=== PATIENT | male | born 1960 | race Caucasian/White ===

== ENCOUNTER 2017-09-17 09:47 | Emergency (ER) | payer MEDICARE, OTHER ==
[~2017-09-17] VITALS: Ht 170.2 cm; Wt 68.0 kg
[~2017-09-17 09:47] MED LIST: KPHOS250 PO; LANTUS2P SC; NOVOLOGP2 SQ
[2017-09-17] MEDS ORDERED: NOVOLOGP2 SQ (10:10)
[2017-09-17] MEDS ORDERED: LANTUS2P SQ (10:10)
[2017-09-17 10:11] VITALS: BP 154/74; PULSE 85; RESP 16; TEMP 98; O2SAT 97
--- NOTE | 2017-09-17 10:34 | PD ---
HPI Chief Complaint: Fall Time Seen by Provider: 10:03 Travel History International Travel<30 days: No Contact w/Intl Traveler<30days: No Traveled to known affect area: No History of Present Illness HPI Patient is a 57 year old male, states in the early hours of the morning he went to get a drink from the kitchen and lost his balance falling backwards landing on his back and backside. He complains of nausea and back pain. Patient states the pain is fairly intense in his low back. No numbness nor tingling. No saddle anesthesia. No difficulty with urination. Denies neck pain or headache. Denies history of blood thinner use. PFSH Past Medical History Hx Anticoagulant Therapy: No Arthritis: Yes Asthma: No Autoimmune Disease: No Anxiety: No Depression: No Heart Rhythm Problems: No Cancer: No Cardiovascular Problems: Yes High Cholesterol: Yes Chest Pain: Yes Congestive Heart Failure: No COPD: No Coronary Artery Disease: Yes (id 09/1999) Diabetes: Yes Patient Takes Glucophage: No Diminished Hearing: No Endocrine: Yes GERD: Yes (today only) Genitourinary: No Hiatal Hernia: No Immune Disorder: No Kidney Stones: No Musculoskeletal: Yes Neurologic: No Psychiatric: No Reproductive: No Respiratory: Yes Immunizations Current: No Myocardial Infarction: Yes (1999) Renal Failure: No Sleep Apnea: No Thyroid Disease: No Tetanus Vaccination: Unknown Influenza Vaccination: Yes Past Surgical History Abdominal Surgery: No Body Medical Devices: cardiac stents x 3 Cardiac Surgery: Yes Coronary Stent: Yes (X3 STENTS) Ear Surgery: Yes (BILAT PERFORATED EAR DRUMS) Endocrine Surgery: No Eye Surgery: No Genitourinary Surgery: No Gynecologic Surgery: No Oral Surgery: No Thoracic Surgery: No Tonsillectomy: Yes Social History Alcohol Use: Yes ( BEER DAILY) Tobacco Use: No (QUIT 2014) Substance Use: No Allergies-Medications (Allergen,Severity, Reaction): Coded Allergies: No Known Allergies (Verified , 07/18/15) Reported Meds & Prescriptions Reported Meds & Active Scripts Active Zofran Odt (Ondansetron Odt) 4 Mg Tab 4 Mg SL Q6HR PRN Percocet (Oxycodone-Acetaminophen) 10-325 mg Tab 1 Tab PO Q6H PRN Reported Novolog Inj (Insulin Aspart) 1,000 Unit/10 Ml Vial 0 SQ DIRECTED Sliding Scale as directed. Lantus Inj (Insulin Glargine) 1,000 Unit/10 Ml Vial 25 Units SQ HS Review of Systems Except as stated in HPI: all other systems reviewed are Neg Physical Exam Narrative GENERAL: WD/WN appears uncomfortable. SKIN: Warm and dry. HEAD: Atraumatic. Normocephalic. EYES: Pupils equal and round. No scleral icterus. No injection or drainage. ENT: No nasal bleeding or discharge. Mucous membranes pink and moist. NECK: Trachea midline. No JVD. No midline CTLS tenderness. CARDIOVASCULAR: Regular rate and rhythm. RESPIRATORY: No accessory muscle use. Clear to auscultation. Breath sounds equal bilaterally. GASTROINTESTINAL: Abdomen soft, non-tender, nondistended. Hepatic and splenic margins not palpable. MUSCULOSKELETAL: Extremities without clubbing, cyanosis, or edema. No obvious deformities. No midline CTLS tenderness. NEUROLOGICAL: Awake and alert. No obvious cranial nerve deficits. Motor grossly within normal limits. Five out of 5 muscle strength in the arms and legs. Normal speech. PMS intact in all four extremities. PSYCHIATRIC: Appropriate mood and affect; insight and judgment normal. Data Data Last Documented VS Vital Signs Date Time Temp Pulse Resp B/P (MAP) Pulse Ox O2 Delivery O2 Flow Rate FiO2 09/17/17 13:29 16 09/17/17 10:39 96 Room Air 09/17/17 10:20 87 09/17/17 10:11 98.0 154/74 (100) Orders Orders Complete Blood Count With Diff (09/17/17 10:32) Comprehensive Metabolic Panel (09/17/17 10:32) Ct Abd/Pel W Iv Contrast(Rout) (09/17/17 10:32) Iv Access Insert/Monitor (09/17/17 10:32) Ecg Monitoring (09/17/17 10:32) Oximetry (09/17/17 10:32) Sodium Chloride 0.9% Flush (Ns Flush) (09/17/17 10:45) Ct Lumb Spine W Iv Contrast (09/17/17 ) Iohexol 350 Inj (Omnipaque 350 Inj) (09/17/17 11:37) TLSO (09/17/17 ) Morphine Inj (Morphine Inj) (09/17/17 12:45) Ondansetron Odt (Zofran Odt) (09/17/17 12:45) Ed Discharge Order (09/17/17 13:29) Brace Lso-Orthosis (09/17/17 ) Brace Thoracic Ext (09/17/17 ) Labs Laboratory Tests Test 09/17/17 10:40 White Blood Count 10.6 TH/MM3 Red Blood Count 4.49 MIL/MM3 Hemoglobin 14.9 GM/DL Hematocrit 43.7 % Mean Corpuscular Volume 97.2 FL Mean Corpuscular Hemoglobin 33.1 PG Mean Corpuscular Hemoglobin Concent 34.1 % Red Cell Distribution Width 13.1 % Platelet Count 246 TH/MM3 Mean Platelet Volume 8.8 FL Neutrophils (%) (Auto) 85.7 % Lymphocytes (%) (Auto) 8.7 % Monocytes (%) (Auto) 5.1 % Eosinophils (%) (Auto) 0.1 % Basophils (%) (Auto) 0.4 % Neutrophils # (Auto) 9.1 TH/MM3 Lymphocytes # (Auto) 0.9 TH/MM3 Monocytes # (Auto) 0.5 TH/MM3 Eosinophils # (Auto) 0.0 TH/MM3 Basophils # (Auto) 0.0 TH/MM3 CBC Comment DIFF FINAL Differential Comment Blood Urea Nitrogen 7 MG/DL Creatinine 0.61 MG/DL Random Glucose 225 MG/DL Total Protein 7.5 GM/DL Albumin 3.9 GM/DL Calcium Level 8.8 MG/DL Alkaline Phosphatase 52 U/L Aspartate Amino Transf (AST/SGOT) 27 U/L Alanine Aminotransferase (ALT/SGPT) 27 U/L Total Bilirubin 0.4 MG/DL Sodium Level 138 MEQ/L Potassium Level 4.6 MEQ/L Chloride Level 101 MEQ/L Carbon Dioxide Level 27.7 MEQ/L Anion Gap 9 MEQ/L Estimat Glomerular Filtration Rate 136 ML/MIN [facility] Medical Decision Making Medical Screen Exam Complete: Yes Emergency Medical Condition: Yes Differential Diagnosis Back injury, back fracture, abdominal injury, nausea. Narrative Course D/W chyna ok to go home if symptoms are controlled. Morphine and zofran given. Internally abdomen negative. Patient able to concentrate on neck examination and i do not appreciate this as a distracting injury. Cleared by nexus criteria and togolese ct head rules. His pain now better under control, demonstrated ambulation with TLSO. Adamantly denies LOC. He is stable for DC. discussed follow up with pcp and return to ED criteria. Diagnosis Primary Impression: L1 vertebral fracture Referrals: Jack Grady MD Med/Other Pt SpecificInfo: Prescription(s) given Scripts Ondansetron Odt (Zofran Odt) 4 Mg Tab 4 MG SL Q6HR Y for Nausea/Vomiting, #20 TAB 0 Refills Prov: Ag Arambula MD 09/17/17 Oxycodone-Acetaminophen (Percocet) 10-325 mg Tab 1 TAB PO Q6H Y for PAIN, #12 TAB 0 Refills Prov: Ag Arambula MD 09/17/17 Disposition: 01 DISCHARGE HOME Condition: Stable Ag Arambula MD Sep 17, 2017 10:34
[2017-09-17 10:39] VITALS: RESP 16; O2SAT 96
[2017-09-17] MEDS ORDERED: SODIUM CHLORIDE 0.9% FLUSH 10 ML FLUSH IV FLUSH PRN (10:45)
[2017-09-17 11:07] LABS: AUTOMATED NEUTROPHIL # 9.1 TH/MM3 (1.8-7.7); BASOPHIL % 0.4 % (0.0-2.0); EOSINOPHIL % 0.1 % (0.0-4.0); HEMATOCRIT 43.7 % (39.0-51.0); HEMOGLOBIN 14.9 GM/DL (13.0-17.0); LYMPH % 8.7 % (9.0-44.0); LYMPHOCYTE # 0.9 TH/MM3 (1.0-4.8); MEAN CELL VOLUME 97.2 FL (80.0-100.0); MEAN CORPUSCULAR HEMOGLOBIN 33.1 PG (27.0-34.0); MEAN CORPUSCULAR HGB CONC 34.1 % (32.0-36.0); MEAN PLATELET VOLUME 8.8 FL (7.0-11.0); MONO % 5.1 % (0.0-8.0); MONOCYTE # 0.5 TH/MM3 (0-0.9); NEUT % 85.7 % (16.0-70.0); PLATELET COUNT 246 TH/MM3 (150-450); RED BLOOD COUNT 4.49 MIL/MM3 (4.50-5.90); RED CELL DISTRIBUTION WIDTH 13.1 % (11.6-17.2); WHITE BLOOD COUNT 10.6 TH/MM3 (4.0-11.0)
[2017-09-17 11:32] LABS: ALKALINE PHOSPHATASE 52 U/L (45-117); TOTAL BILIRUBIN ADULT 0.4 MG/DL (0.2-1.0); TOTAL PROTEIN 7.5 GM/DL (6.4-8.2)
[2017-09-17] MEDS ORDERED: IOHEXOL 350 MG/ML 10 ML VIAL (for RAD DIAG) IVCONTRAST ONE (11:37)
[2017-09-17 11:42] LABS: BLOOD UREA NITROGEN 7 MG/DL (7-18); CREATININE 0.61 MG/DL (0.60-1.30); GLOMERULAR FILTRATION RATE 136 ML/MIN (>89); GLUCOSE,RANDOM 225 MG/DL (74-106)
[2017-09-17 11:43] LABS: ALBUMIN 3.9 GM/DL (3.4-5.0); ALT (GPT) 27 U/L (12-78); AST (GOT) 27 U/L (15-37); BICARBONATE 27.7 MEQ/L (21.0-32.0); CALCIUM 8.8 MG/DL (8.5-10.1); CHLORIDE 101 MEQ/L (98-107); SODIUM (NA) 138 MEQ/L (136-145)
--- NOTE | 2017-09-17 12:04 | RADRPT ---
EXAM DATE: 09/17/2017 11:45 AM EDT AGE/SEX: 57 years / Male INDICATIONS: Abdominal and back pain with vomiting. CLINICAL DATA: This is the patient's initial encounter. Patient reports that signs and symptoms have been present for 1 day and indicates a pain score of 10/10. MEDICAL/SURGICAL HISTORY: Cardiovascular disease. Diabetes. None. RADIATION DOSE: 6.64 CTDI (mGy) ; Reconstructed from previous dataset, no dose COMPARISON: No prior exams available for comparison. TECHNIQUE: Contiguous axial images were acquired with a multirow detector CT scanner after intraveno us administration of 95 ml Omnipaque 350 (iohexol) nonionic water-soluble contrast as a single exam dose. Multiplanar reconstructions in the sagittal and coronal plane were also performed. Using autom ated exposure control and adjustment of the mA and/or kV according to patient size, radiation dose wa s kept as low as reasonably achievable to obtain optimal diagnostic quality images. DICOM format gary [employer] data is available electronically for review and comparison. FINDINGS: Vertebrae: There is fracturing of the superior aspect of the L1 vertebral body. This appears acute. There is some concavity to the anterior superior aspect of the L1 vertebral body. Disruption of the c ortex is seen anteriorly. The posterior L1 vertebral body margin appears intact. There is a nonspecif ic 0.9 cm sclerotic area in the posterior medial right ilium. Alignment: Normal. No subluxation. Post Contrast: No abnormal areas of enhancement are seen in the cord, dural or paraspinal regions. T12-L1: The thecal sac has a normal diameter. No evidence of disc bulge or protrusion. The neural foramina are patent bilaterally. L1-L2: The thecal sac has a normal diameter. No evidence of disc bulge or protrusion. The neural f oramina are patent bilaterally. L2-L3: The thecal sac has a normal diameter. No evidence of disc bulge or protrusion. The neural f oramina are patent bilaterally. L3-L4: The thecal sac has a normal diameter. No evidence of disc bulge or protrusion. The neural f oramina are patent bilaterally. There is mild facet hypertrophy. L4-L5: The thecal sac has a normal diameter. No evidence of disc bulge or protrusion. The neural f oramina are patent bilaterally. There is mild facet hypertrophy. L5-S1: The thecal sac has a normal diameter. No evidence of disc bulge or protrusion. The neural f oramina are patent bilaterally. CONCLUSION: Acute fracture of the anterior superior aspect of the L1 vertebral body with some concave deformity a nd collapse of the anterior aspect of the superior endplate. Electronically signed by: Parrish Pope MD 09/17/2017 12:03 PM EDT
--- NOTE | 2017-09-17 12:08 | RADRPT ---
EXAM DATE: 09/17/2017 11:33 AM EDT AGE/SEX: 57 years / Male INDICATIONS: Abdominal and back pain with vomiting. CLINICAL DATA: This is the patient's initial encounter. Patient reports that signs and symptoms have been present for 1 day and indicates a pain score of 10/10. MEDICAL/SURGICAL HISTORY: Cardiovascular disease. Diabetes. None. ORAL CONTRAST: No oral contrast ingested. RADIATION DOSE: 6.64 CTDI (mGy) COMPARISON: No prior exams available for comparison. TECHNIQUE: Multiple contiguous axial images were obtained through the abdomen and pelvis following b olus infusion of 95 ml Omnipaque 350 (iohexol) nonionic water-soluble contrast as a single exam dos e. No oral contrast ingested. Using automated exposure control and adjustment of the mA and/or kV ac cording to patient size, radiation dose was kept as low as reasonably achievable to obtain optimal di agnostic quality images. DICOM format image data is available electronically for review and comparis on. FINDINGS: Lower Lungs: The visualized lower lungs are clear. Liver: There is mild decreased attenuation to the liver without focal hepatic lesions. There is no di lation of the biliary tree. Spleen: Homogeneous density without enlargement. Pancreas: Unremarkable without mass or calcification. Kidneys: Normal in size and shape. No evidence of hydronephrosis. Small right renal cysts are seen. Adrenal Glands: Unremarkable. Aorta: Atherosclerotic calcifications are seen throughout. Bowel/Mesentery: The bowel loops are grossly unremarkable. The cecum and sigmoid colon have a normal configuration. Abdominal Wall: Intact. Retroperitoneum: No evidence of adenopathy in the retrocrural, para-aortic, or deep pelvic regions. Bladder: Contours are smooth. Reproductive Organs: No abnormal masses or calcifications seen. Inguinal: The inguinal region is unremarkable without evidence of adenopathy. Bony Structures: There is fracturing of the superior aspect of the L1 vertebral body.. CONCLUSION: 1. Fracturing of the superior aspect of the L1 vertebral body. 2. Hepatic steatosis. Electronically signed by: Parrish Pope MD 09/17/2017 12:07 PM EDT
[2017-09-17] MEDS ORDERED: ONDANSETRON ODT 4 MG TAB PO ONE (12:45)
[2017-09-17] MEDS ORDERED: MORPHINE SULFATE 4 MG/ML INJ IV PUSH ONE (12:45)
[2017-09-17 13:29] VITALS: RESP 16
[2017-09-17] MEDS ORDERED: PERC10TA27 PO (13:29)
[2017-09-17] MEDS ORDERED: ZOFR4TAB3 SL (13:29)
== END 2017-09-17 13:54 | disposition home or self-care (01) ==
LOC: NEPD 09:47
DX: S32.019A Unspecified fracture of first lumbar vertebra, initial encounter for closed fracture (principal); E11.9 Type 2 diabetes mellitus without complications; W01.0XXA Fall on same level from slipping, tripping and stumbling without subsequent striking against object, initial encounter; Y93.89 Activity, other specified; Y92.000 Kitchen of unspecified non-institutional (private) residence as the place of occurrence of the external cause; Z79.4 Long term (current) use of insulin
CPT/HCPCS: 72132; 74177; 80053; 85025; 96374; 99284; J2270; L0200; L0484; Q9967

== ENCOUNTER 2017-09-19 19:04 | Emergency (ER) | payer OTHER ==
[~2017-09-19] VITALS: Ht 172.7 cm; Wt 63.5 kg
[~2017-09-19 19:04] MED LIST changes: -KPHOS250 PO; -LANTUS2P SC; +LANTUS2P SQ; +PERC10TA27 PO; +ZOFR4TAB3 SL
[2017-09-19 19:06] VITALS: BP 106/61; PULSE 109; RESP 18; TEMP 97.8; O2SAT 97
--- NOTE | 2017-09-19 19:38 | PD ---
HPI Chief Complaint: Diabetic Time Seen by Provider: 19:23 Travel History International Travel<30 days: No Contact w/Intl Traveler<30days: No Traveled to known affect area: No History of Present Illness HPI 57yo M with PMH of insulin dependent DM, alcohol abuse presents to the ED with c /o nausea and vomiting for 2 days. Pt had diabetic ketoacidosis before and was concern. Denies any fever, chest pain, sob, abdominal pain, focal weakness or numbness. Pt was seen at [facility] on 09/17/17 after a fall and found to have fracture of L1 and is now in a TLSO brace. Pt last had alcohol today. PFSH Past Medical History Hx Anticoagulant Therapy: No Arthritis: Yes Asthma: No Autoimmune Disease: No Anxiety: No Depression: No Heart Rhythm Problems: No Cancer: No Cardiovascular Problems: Yes (AL and stents) High Cholesterol: Yes Chest Pain: Yes Congestive Heart Failure: No COPD: No Coronary Artery Disease: Yes (mi 09/1999) Diabetes: Yes Diminished Hearing: No Endocrine: Yes GERD: Yes (today only) Genitourinary: No Hiatal Hernia: No Immune Disorder: No Kidney Stones: No Musculoskeletal: Yes Neurologic: No Psychiatric: No Reproductive: No Respiratory: Yes Immunizations Current: No Myocardial Infarction: Yes (1999) Renal Failure: No Sleep Apnea: No Thyroid Disease: No Past Surgical History Abdominal Surgery: No Body Medical Devices: cardiac stents x 3 Cardiac Surgery: Yes Coronary Stent: Yes (X3 STENTS) Ear Surgery: Yes (BILAT PERFORATED EAR DRUMS) Endocrine Surgery: No Eye Surgery: No Genitourinary Surgery: No Gynecologic Surgery: No Oral Surgery: No Thoracic Surgery: No Tonsillectomy: Yes Social History Alcohol Use: Yes ( BEER DAILY) Tobacco Use: No (QUIT 2014) Substance Use: No Allergies-Medications (Allergen,Severity, Reaction): Coded Allergies: No Known Allergies (Verified , 07/18/15) Reported Meds & Prescriptions Reported Meds & Active Scripts Active Zantac (Ranitidine HCl) 150 Mg Tab 150 Mg PO BID Zofran Odt (Ondansetron Odt) 4 Mg Tab 4 Mg SL Q6HR PRN Percocet (Oxycodone-Acetaminophen) 10-325 mg Tab 1 Tab PO Q6H PRN Reported Novolog Inj (Insulin Aspart) 1,000 Unit/10 Ml Vial 0 SQ DIRECTED Sliding Scale as directed. Lantus Inj (Insulin Glargine) 1,000 Unit/10 Ml Vial 25 Units SQ HS Review of Systems Except as stated in HPI: all other systems reviewed are Neg Physical Exam Narrative GENERAL: 57yo M not in distress. SKIN: Focused skin assessment warm/dry. HEAD: Atraumatic. Normocephalic. EYES: Pupils equal and round. No scleral icterus. No injection or drainage. ENT: No nasal bleeding or discharge. Mucous membranes pink and moist. NECK: Trachea midline. No JVD. CARDIOVASCULAR: Regular rate and rhythm. No murmur appreciated. RESPIRATORY: No accessory muscle use. Clear to auscultation. Breath sounds equal bilaterally. GASTROINTESTINAL: Abdomen soft, non-tender, nondistended. No rebound tenderness or guarding. MUSCULOSKELETAL: No obvious deformities. No clubbing. No cyanosis. No edema. NEUROLOGICAL: Awake and alert. No obvious cranial nerve deficits. Motor grossly within normal limits. Normal speech. PSYCHIATRIC: Appropriate mood and affect; insight and judgment normal. Data Data Last Documented VS Vital Signs Date Time Temp Pulse Resp B/P (MAP) Pulse Ox O2 Delivery O2 Flow Rate FiO2 09/19/17 21:18 106 16 105/60 (75) 100 Room Air 09/19/17 19:06 97.8 Orders Orders Complete Blood Count With Diff (09/19/17 19:12) Blood Glucose (09/19/17 19:12) Comprehensive Metabolic Panel (09/19/17 19:12) Iv Access Insert/Monitor (09/19/17 19:12) Blood Gas Venous (Vbg) (09/19/17 19:31) Sodium Chlor 0.9% 1000 Ml Inj (Ns 1000 M (09/19/17 19:45) Ondansetron Odt (Zofran Odt) (09/19/17 19:45) Beta Hydroxybutyrate (Acetone) (09/19/17 19:12) Lipase (09/19/17 19:12) Sodium Chlor 0.9% 1000 Ml Inj (Ns 1000 M (09/19/17 21:45) Ed Discharge Order (09/19/17 22:19) Ranitidine Liq (Zantac Liq) (09/19/17 22:30) Famotidine (Pepcid) (09/19/17 22:30) Labs Laboratory Tests Test 09/19/17 19:40 09/19/17 19:45 White Blood Count 9.1 TH/MM3 Red Blood Count 4.74 MIL/MM3 Hemoglobin 15.9 GM/DL Hematocrit 46.3 % Mean Corpuscular Volume 97.6 FL Mean Corpuscular Hemoglobin 33.5 PG Mean Corpuscular Hemoglobin Concent 34.3 % Red Cell Distribution Width 12.1 % Platelet Count 224 TH/MM3 Mean Platelet Volume 8.5 FL Neutrophils (%) (Auto) 84.9 % Lymphocytes (%) (Auto) 8.9 % Monocytes (%) (Auto) 5.7 % Eosinophils (%) (Auto) 0.1 % Basophils (%) (Auto) 0.4 % Neutrophils # (Auto) 7.8 TH/MM3 Lymphocytes # (Auto) 0.8 TH/MM3 Monocytes # (Auto) 0.5 TH/MM3 Eosinophils # (Auto) 0.0 TH/MM3 Basophils # (Auto) 0.0 TH/MM3 CBC Comment DIFF FINAL Differential Comment Blood Urea Nitrogen 11 MG/DL Creatinine 0.70 MG/DL Random Glucose 214 MG/DL Total Protein 8.2 GM/DL Albumin 3.8 GM/DL Calcium Level 9.8 MG/DL Alkaline Phosphatase 63 U/L Aspartate Amino Transf (AST/SGOT) 20 U/L Alanine Aminotransferase (ALT/SGPT) 23 U/L Total Bilirubin 0.9 MG/DL Sodium Level 130 MEQ/L Potassium Level 4.5 MEQ/L Chloride Level 88 MEQ/L Carbon Dioxide Level 25.1 MEQ/L Anion Gap 17 MEQ/L Estimat Glomerular Filtration Rate 116 ML/MIN Lipase 45 U/L B-Hydroxybutyrate 8.03 MMOL/L Blood Gas Puncture Site IV Blood Gas Patient Temperature 98.6 Venous Blood pH 7.37 Venous Blood Partial Pressure CO2 47 mmHg Venous Blood Partial Pressure O2 18 mmHg Venous Blood HCO3 26 mmol/L Venous Blood Oxygen Saturation 23 % Venous Blood Oxygen Content 5.1 Vol % Venous Blood Base Excess 1.4 mmol/L Blood Gas Inspired Oxygen 21 % [facility] Medical Decision Making Medical Screen Exam Complete: Yes Emergency Medical Condition: Yes Differential Diagnosis DKA vs. dehydration vs. electrolyte abnormality Narrative Course 57yo well appearing male here with complaint of nausea and vomiting for 2 days. Pt wants to make sure he is not in DKA because he has had this before. Labs reviewed, no leukocytosis. H/H normal. Mild hyponatremia at 130. Mild hypochloremia at 88. Glucose only elevated at 214. CO normal at 25.1. pH is normal at 7.37. Pt given zofran and NS IVF x2. Pt reevaluated at bedside and feeling better. Tolerating PO. No abdominal pain. Upon discharge, pt said he wants something for reflux so given pepcid. Pt already has prescriptions for zofran. Return precautions given. Diagnosis Primary Impression: Nausea & vomiting Qualified Codes: R11.2 - Nausea with vomiting, unspecified Patient Instructions: General Instructions Departure Forms: Tests/Procedures Additional Instructions: Please follow up with your primary care physician in 2-3 days. Return to the ED if symptoms worsen. Med/Other Pt SpecificInfo: Prescription(s) given Scripts Ranitidine (Zantac) 150 Mg Tab 150 MG PO BID for Reduce Stomach Acid, #15 TAB 0 Refills Prov: June Lowe DO 09/19/17 Disposition: 01 DISCHARGE HOME Condition: Stable June Lowe DO Sep 19, 2017 19:38
[2017-09-19] MEDS ORDERED: SODIUM CHLOR 0.9% 1000 ML INJ 1,000 ML IV ONE ×2 (19:45→21:45)
[2017-09-19] MEDS ORDERED: ONDANSETRON ODT 4 MG TAB PO ONE (19:45)
[2017-09-19 19:54] LABS: AUTOMATED NEUTROPHIL # 7.8 TH/MM3 (1.8-7.7); BASOPHIL % 0.4 % (0.0-2.0); EOSINOPHIL % 0.1 % (0.0-4.0); HEMATOCRIT 46.3 % (39.0-51.0); HEMOGLOBIN 15.9 GM/DL (13.0-17.0); LYMPH % 8.9 % (9.0-44.0); LYMPHOCYTE # 0.8 TH/MM3 (1.0-4.8); MEAN CELL VOLUME 97.6 FL (80.0-100.0); MEAN CORPUSCULAR HEMOGLOBIN 33.5 PG (27.0-34.0); MEAN CORPUSCULAR HGB CONC 34.3 % (32.0-36.0); MEAN PLATELET VOLUME 8.5 FL (7.0-11.0); MONO % 5.7 % (0.0-8.0); MONOCYTE # 0.5 TH/MM3 (0-0.9); NEUT % 84.9 % (16.0-70.0); PLATELET COUNT 224 TH/MM3 (150-450); RED BLOOD COUNT 4.74 MIL/MM3 (4.50-5.90); RED CELL DISTRIBUTION WIDTH 12.1 % (11.6-17.2); WHITE BLOOD COUNT 9.1 TH/MM3 (4.0-11.0)
[2017-09-19 20:01] LABS: CHLORIDE 88 MEQ/L (98-107); SODIUM (NA) 130 MEQ/L (136-145)
[2017-09-19 20:04] LABS: CALCIUM 9.8 MG/DL (8.5-10.1)
[2017-09-19 20:05] LABS: ALBUMIN 3.8 GM/DL (3.4-5.0); BICARBONATE 25.1 MEQ/L (21.0-32.0); BLOOD UREA NITROGEN 11 MG/DL (7-18); GLUCOSE,RANDOM 214 MG/DL (74-106)
[2017-09-19 20:08] LABS: ALT (GPT) 23 U/L (12-78); AST (GOT) 20 U/L (15-37); GLOMERULAR FILTRATION RATE 116 ML/MIN (>89)
[2017-09-19 20:09] LABS: TOTAL BILIRUBIN ADULT 0.9 MG/DL (0.2-1.0); TOTAL PROTEIN 8.2 GM/DL (6.4-8.2)
[2017-09-19 20:10] LABS: ALKALINE PHOSPHATASE 63 U/L (45-117)
[2017-09-19 21:18] VITALS: BP 105/60; PULSE 106; RESP 16; O2SAT 100
[2017-09-19] MEDS ORDERED: ZOFR4TAB3 SL (22:18)
[2017-09-19] MEDS ORDERED: ZANT150T2 PO (22:23)
[2017-09-19] MEDS ORDERED: FAMOTIDINE 20 MG TAB PO ONE (22:30)
[2017-09-19] MEDS ORDERED: RANITIDINE HCL SYRUP 150 MG/10 ML UDC PO ONE (22:30)
[2017-09-19 22:46] VITALS: BP 137/78
== END 2017-09-19 22:48 | disposition home or self-care (01) ==
LOC: PHED 19:04
DX: R11.2 Nausea with vomiting, unspecified (principal); E11.9 Type 2 diabetes mellitus without complications; E78.00 Pure hypercholesterolemia, unspecified; I25.2 Old myocardial infarction; I25.10 Atherosclerotic heart disease of native coronary artery without angina pectoris; Z79.4 Long term (current) use of insulin; Z95.5 Presence of coronary angioplasty implant and graft
CPT/HCPCS: 80053; 82010; 82805; 83690; 85025; 96360; 96361; 99284; J7030

== ENCOUNTER 2017-09-21 14:26 | Inpatient (IN) | payer OTHER, MEDICARE ==
[2017-09-21] VITALS (18 sets, daily range): BP systolic 102–140; BP diastolic 55–70; PULSE 100–114; RESP 16–24; TEMP 97.8–98; O2SAT 98–100
[~2017-09-21] VITALS: Ht 170.2 cm; Wt 60.9 kg
[~2017-09-21 14:26] MED LIST changes: +ZANT150T2 PO
[2017-09-21 15:47] LABS: AUTOMATED NEUTROPHIL # 14.4 TH/MM3 (1.8-7.7); BASOPHIL # 0.2 TH/MM3 (0-0.2); BASOPHIL % 1.1 % (0.0-2.0); EOSINOPHIL % 0.1 % (0.0-4.0); HEMATOCRIT 43.1 % (39.0-51.0); HEMOGLOBIN 14.6 GM/DL (13.0-17.0); LYMPH % 4.3 % (9.0-44.0); LYMPHOCYTE # 0.7 TH/MM3 (1.0-4.8); MEAN CELL VOLUME 99.5 FL (80.0-100.0); MEAN CORPUSCULAR HEMOGLOBIN 33.8 PG (27.0-34.0); MEAN CORPUSCULAR HGB CONC 33.9 % (32.0-36.0); MEAN PLATELET VOLUME 9.1 FL (7.0-11.0); MONO % 7.5 % (0.0-8.0); MONOCYTE # 1.2 TH/MM3 (0-0.9); PLATELET COUNT 255 TH/MM3 (150-450); RED BLOOD COUNT 4.33 MIL/MM3 (4.50-5.90); RED CELL DISTRIBUTION WIDTH 12.9 % (11.6-17.2); WHITE BLOOD COUNT 16.5 TH/MM3 (4.0-11.0)
[2017-09-21 16:07] LABS: ALBUMIN 3.8 GM/DL (3.4-5.0); ALKALINE PHOSPHATASE 68 U/L (45-117); ALT (GPT) 21 U/L (12-78); AST (GOT) 13 U/L (15-37); BICARBONATE 3.4 MEQ/L (21.0-32.0); BLOOD UREA NITROGEN 21 MG/DL (7-18); CALCIUM 9.4 MG/DL (8.5-10.1); CHLORIDE 94 MEQ/L (98-107); GLOMERULAR FILTRATION RATE 52 ML/MIN (>89); GLUCOSE,RANDOM 405 MG/DL (74-106); SODIUM (NA) 129 MEQ/L (136-145); TOTAL BILIRUBIN ADULT 0.5 MG/DL (0.2-1.0); TOTAL PROTEIN 7.9 GM/DL (6.4-8.2)
[2017-09-21] MEDS: DEXT 5%-NACL 0.9% 1000 ML INJ 1,000 ML IV SCH ×3 (16:13→22:38)
[2017-09-21] MEDS ORDERED: POTASSIUM CHLOR 20 MEQ PREMIX 100 ML IV PRN ×12 (16:15→16:30)
[2017-09-21] MEDS ORDERED: SODIUM PHOSPHATE INJ 15 MMOL in SODIUM CHLORIDE 0.9% INJ 100 ML IV PRN ×2 (16:15→16:30)
[2017-09-21] MEDS ORDERED: SODIUM CHLOR 0.9% 1000 ML INJ 1,000 ML IV ONE (16:15)
[2017-09-21] MEDS ORDERED: INSULIN HUMAN REGULAR 1,000 UNITS/10 ML VIAL IV PUSH ONE ×3 (16:15→17:15)
[2017-09-21] MEDS ORDERED: SODIUM BICARBONATE 8.4% SOLN 50 MEQ/50 ML VIAL IV PUSH PRN ×4 (16:15→16:30)
[2017-09-21] MEDS ORDERED: INSULIN REGULAR (IV INFUSION) 100 UNITS in SODIUM CHLORIDE 0.9% INJ 99 ML IV PRN ×2 (16:15→16:30)
[2017-09-21] MEDS ORDERED: POTASSIUM CHLOR 40 MEQ PREMIX 100 ML IV PRN ×4 (16:15→16:30)
[2017-09-21] MEDS ORDERED: SODIUM CHLOR 0.9% 1000 ML INJ 1,000 ML IV SCH (16:26)
[2017-09-21] MEDS ORDERED: DEXT 5%-NACL 0.9% 1000 ML INJ 1,000 ML IV SCH (16:26)
[2017-09-21] MEDS ORDERED: BISACODYL 10 MG SUPP RECTAL PRN (16:30)
[2017-09-21] MEDS ORDERED: NURSING INFORMATION XX SCH (16:30)
[2017-09-21] MEDS ORDERED: MAGNESIUM HYDROXIDE SUSP 30 ML CUP PO PRN (16:30)
[2017-09-21] MEDS ORDERED: SENNOSIDES 8.6 MG TAB PO PRN (16:30)
[2017-09-21] MEDS ORDERED: ACETAMINOPHEN 325 MG TAB PO PRN (16:30)
[2017-09-21] MEDS ORDERED: SODIUM CHLORIDE 0.9% FLUSH 10 ML FLUSH IV FLUSH PRN (16:30)
[2017-09-21] MEDS ORDERED: LACTULOSE SYRUP 20 GM/30 ML CUP PO PRN (16:30)
[2017-09-21] MEDS ORDERED: RESP: ALBUTEROL 2.5 MG/IPRATROPIUM 0.5 MG NEB (PRN) INH (16:30)
[2017-09-21] MEDS ORDERED: CHLORHEXIDINE GLUCONATE 2 % 1 PACK (2 CLOTHS) TOP PRN (16:30)
[2017-09-21] MEDS ORDERED: ONDANSETRON HCL 4 MG/2 ML VIAL IV PUSH PRN (16:30)
[2017-09-21] MEDS: SODIUM CHLOR 0.9% 1000 ML INJ 1,000 ML IV SCH ×5 (17:01→23:31)
[2017-09-21 17:18] LABS: MAGNESIUM 2.3 MG/DL (1.5-2.5)
[2017-09-21 17:22] LABS: PHOSPHORUS 6.3 MG/DL (2.5-4.9)
[2017-09-21 17:26] LABS: TROPONIN I LESS THAN 0.02 NG/ML (0.02-0.05)
--- NOTE | 2017-09-21 17:47 | PD ---
HPI Chief Complaint: GI Complaint Time Seen by Provider: 15:15 Travel History International Travel<30 days: No Contact w/Intl Traveler<30days: No Traveled to known affect area: No History of Present Illness HPI This is a 57-year-old male who has a history of resents to the emergency department with nausea and vomiting that have been going on for 1 week, constant , moderate severity with some diffuse mild abdominal pain. He broke his back one week ago and ever since then has had decreased appetite and oral intake. He has a history of diabetic ketoacidosis in the past. PFSH Past Medical History Hx Anticoagulant Therapy: No Arthritis: Yes Asthma: No Autoimmune Disease: No Anxiety: No Depression: No Heart Rhythm Problems: No Cancer: No Cardiovascular Problems: Yes (HI and stents) High Cholesterol: Yes Chest Pain: Yes Congestive Heart Failure: No COPD: No Coronary Artery Disease: Yes (mi 09/1999) Diabetes: Yes Patient Takes Glucophage: Yes Diminished Hearing: No Endocrine: Yes GERD: Yes (today only) Genitourinary: No Hiatal Hernia: No Immune Disorder: No Implanted Vascular Access Dvce: Yes Kidney Stones: No Medical other: Yes (FX BACK 09/19/17) Musculoskeletal: Yes Neurologic: No Psychiatric: No Reproductive: No Respiratory: Yes Immunizations Current: No Myocardial Infarction: Yes (1999) Renal Failure: No Sleep Apnea: No Thyroid Disease: No Tetanus Vaccination: Unknown Past Surgical History Abdominal Surgery: No Body Medical Devices: cardiac stents x 3 Cardiac Surgery: Yes Coronary Stent: Yes (X3 STENTS) Ear Surgery: Yes (BILAT PERFORATED EAR DRUMS) Endocrine Surgery: No Eye Surgery: No Genitourinary Surgery: No Gynecologic Surgery: No Oral Surgery: No Thoracic Surgery: No Tonsillectomy: Yes Other Surgery: Yes Social History Alcohol Use: Yes ( BEER DAILY) Tobacco Use: No (QUIT 2014) Substance Use: No Allergies-Medications (Allergen,Severity, Reaction): Coded Allergies: No Known Allergies (Verified Adverse Reaction, Unknown, 09/21/17) Reported Meds & Prescriptions Reported Meds & Active Scripts Active Zantac (Ranitidine HCl) 150 Mg Tab 150 Mg PO BID Zofran Odt (Ondansetron Odt) 4 Mg Tab 4 Mg SL Q6HR PRN Percocet (Oxycodone-Acetaminophen) 10-325 mg Tab 1 Tab PO Q6H PRN Reported Novolog Inj (Insulin Aspart) 1,000 Unit/10 Ml Vial 0 SQ DIRECTED Sliding Scale as directed. Lantus Inj (Insulin Glargine) 1,000 Unit/10 Ml Vial 25 Units SQ HS Review of Systems Except as stated in HPI: all other systems reviewed are Neg Physical Exam Narrative GENERAL:Well appearing, no acute distress SKIN: Focused skin assessment warm and dry. HEAD: Atraumatic. Normocephalic. EYES: Pupils equal and round. No injection or drainage. ENT: Dry mucous membranes. NECK: Trachea midline. CARDIOVASCULAR: Tachycardia, no murmur appreciated. RESPIRATORY: Kussmaul respirations, tachypnea GASTROINTESTINAL: Abdomen soft, non-tender, nondistended. MUSCULOSKELETAL: No obvious deformities. NEUROLOGICAL: Awake and alert. No obvious cranial nerve deficits. Moving all extremities. PSYCHIATRIC: Appropriate mood and affect; insight and judgment normal. Data Data Last Documented VS Vital Signs Date Time Temp Pulse Resp B/P (MAP) Pulse Ox O2 Delivery O2 Flow Rate FiO2 09/21/17 17:40 106 24 117/55 (75) 100 Room Air 09/21/17 17:15 21 09/21/17 14:33 98.0 Orders Orders Complete Blood Count With Diff (09/21/17 15:16) Comprehensive Metabolic Panel (09/21/17 15:16) ^ Insert Iv (09/21/17 15:16) Blood Gas Venous (Vbg) (09/21/17 15:16) Electrocardiogram (09/21/17 16:13) International Account Representative / Telemetry YOVANI.Q8H (09/21/17 16:13) ^ Insert Iv (09/21/17 16:13) Diet Npo (09/21/17 Dinner) Sodium Chlor 0.9% 1000 Ml Inj (Ns 1000 M (09/21/17 16:13) Dext 5%-Nacl 0.9% 1000 Ml Inj (D5w-Ns 10 (09/21/17 16:13) Insulin Regular (Iv Infusion) (Novolin R (09/21/17 16:15) Potassium Chlor 40 Meq Premix (Kcl 40 Me (09/21/17 16:15) Potassium Chlor 40 Meq Premix (Kcl 40 Me (09/21/17 16:15) Potassium Chlor 20 Meq Premix (Kcl 20 Me (09/21/17 16:15) Potassium Chlor 20 Meq Premix (Kcl 20 Me (09/21/17 16:15) Potassium Chlor 20 Meq Premix (Kcl 20 Me (09/21/17 16:15) Potassium Chlor 20 Meq Premix (Kcl 20 Me (09/21/17 16:15) Potassium Chlor 20 Meq Premix (Kcl 20 Me (09/21/17 16:15) Potassium Chlor 20 Meq Premix (Kcl 20 Me (09/21/17 16:15) Sodium Bicarbonate 8.4% Inj (Sodium Bica (09/21/17 16:15) Sodium Bicarbonate 8.4% Inj (Sodium Bica (09/21/17 16:15) Sodium Phosphate Inj (Sodium Phosphate I (09/21/17 16:15) Hemoglobin (Hgb) A1c (09/21/17 16:13) Urinalysis - C+S If Indicated (09/21/17 16:13) Basic Metabolic Panel (Bmp) (09/21/17 21:13) Basic Metabolic Panel (Bmp) (09/22/17 03:13) Basic Metabolic Panel (Bmp) (09/22/17 09:13) Basic Metabolic Panel (Bmp) (09/22/17 15:13) Magnesium (Mg) (09/21/17 21:13) Magnesium (Mg) (09/22/17 03:13) Magnesium (Mg) (09/22/17 09:13) Magnesium (Mg) (09/22/17 15:13) Phosphorus (Po4) (09/21/17 21:13) Phosphorus (Po4) (09/22/17 03:13) Phosphorus (Po4) (09/22/17 09:13) Phosphorus (Po4) (09/22/17 15:13) Beta Hydroxybutyrate (Acetone) (09/22/17 03:13) Beta Hydroxybutyrate (Acetone) (09/22/17 15:13) Sodium Chlor 0.9% 1000 Ml Inj (Ns 1000 M (09/21/17 16:15) Admit To Inpatient (09/21/17 ) International Account Representative / Telemetry YOVANI.Q8H (09/21/17 16:26) ^ Insert Iv (09/21/17 16:26) ^ Teach Patient (09/21/17 16:26) Bedside Glucose YOVANI.Q1H (09/21/17 16:26) Magnesium (Mg) (09/21/17 16:26) Phosphorus (Po4) (09/21/17 16:26) Lipase (09/21/17 16:26) Troponin I (09/21/17 16:26) Sodium Chlor 0.9% 1000 Ml Inj (Ns 1000 M (09/21/17 16:26) Basic Metabolic Panel (Bmp) (09/21/17 21:26) Basic Metabolic Panel (Bmp) (09/22/17 03:26) Basic Metabolic Panel (Bmp) (09/22/17 09:26) Basic Metabolic Panel (Bmp) (09/22/17 15:26) Magnesium (Mg) (09/21/17 21:26) Magnesium (Mg) (09/22/17 03:26) Magnesium (Mg) (09/22/17 09:26) Magnesium (Mg) (09/22/17 15:26) Phosphorus (Po4) (09/21/17 21:26) Phosphorus (Po4) (09/22/17 03:26) Phosphorus (Po4) (09/22/17 09:26) Phosphorus (Po4) (09/22/17 15:26) Beta Hydroxybutyrate (Acetone) (09/22/17 03:26) Beta Hydroxybutyrate (Acetone) (09/22/17 15:26) ^ Initiate Protocol (09/21/17 16:26) Instruction (09/21/17 16:26) Nursing Information ([facility] Nursing Inform (09/21/17 16:30) Chlorhexidine 2% Cloth (Chlorhexidine 2% (09/22/17 04:00) Chlorhexidine 2% Cloth (Chlorhexidine 2% (09/21/17 16:30) Mrsa Pcr Surveillance (09/21/17 16:26) Admit To Inpatient (09/21/17 ) Code Status (09/21/17 16:26) Vital Signs (Adult) YOVANI.Q1H (09/21/17 16:26) Activity Bed Rest (09/21/17 16:26) Elevate Head Of Bed (09/21/17 16:26) Sodium Chloride 0.9% Flush (Ns Flush) (09/21/17 16:30) Sodium Chloride 0.9% Flush (Ns Flush) (09/21/17 21:00) Acetaminophen (Tylenol) (09/21/17 16:30) Famotidine Inj (Pepcid Inj) (09/21/17 21:00) Ondansetron Inj (Zofran Inj) (09/21/17 16:30) Albuterol-Ipratropium Neb (Duoneb Neb) (09/21/17 16:30) Lactic Acid (09/22/17 04:00) Resp Oxygen Paulo C Titrat 1-4 L (09/21/17 ) Resp Pulse Oximetry (09/21/17 16:26) International Account Representative / Telemetry YOVANI.Q8H (09/21/17 16:26) Heparin Inj (Heparin Inj) (09/21/17 18:00) Scd Bilateral/Knee High YOVANI.BID (09/21/17 16:26) Docusate Sodium-Senna (Nidhi-Colace) (09/21/17 21:00) Magnesium Hydroxide Liq (Milk Of Magnesi (09/21/17 16:30) Sennosides (Senokot) (09/21/17 16:30) Bisacodyl Supp (Dulcolax Supp) (09/21/17 16:30) Lactulose Liq (Lactulose Liq) (09/21/17 16:30) Inpatient Certification (09/21/17 ) Admit Order (Ed Use Only) (09/21/17 16:43) Beta Hydroxybutyrate (Acetone) (09/21/17 16:26) Insulin Human Regular Inj (Novolin R Inj (09/21/17 17:15) Labs Laboratory Tests Test 09/21/17 15:30 White Blood Count 16.5 TH/MM3 Red Blood Count 4.33 MIL/MM3 Hemoglobin 14.6 GM/DL Hematocrit 43.1 % Mean Corpuscular Volume 99.5 FL Mean Corpuscular Hemoglobin 33.8 PG Mean Corpuscular Hemoglobin Concent 33.9 % Red Cell Distribution Width 12.9 % Platelet Count 255 TH/MM3 Mean Platelet Volume 9.1 FL Neutrophils (%) (Auto) 87.0 % Lymphocytes (%) (Auto) 4.3 % Monocytes (%) (Auto) 7.5 % Eosinophils (%) (Auto) 0.1 % Basophils (%) (Auto) 1.1 % Neutrophils # (Auto) 14.4 TH/MM3 Lymphocytes # (Auto) 0.7 TH/MM3 Monocytes # (Auto) 1.2 TH/MM3 Eosinophils # (Auto) 0.0 TH/MM3 Basophils # (Auto) 0.2 TH/MM3 CBC Comment DIFF FINAL Differential Comment Blood Gas Puncture Site R.PERIPHERAL Blood Gas Patient Temperature 98.6 Venous Blood pH 6.92 Venous Blood Partial Pressure CO2 20 mmHg Venous Blood Partial Pressure O2 52 mmHg Venous Blood HCO3 4 mmol/L Venous Blood Oxygen Saturation 73 % Venous Blood Oxygen Content 14.6 Vol % Venous Blood Base Excess -26.1 mmol/L Oxygen Delivery Device ROOM AIR Blood Gas Inspired Oxygen 21 % Blood Urea Nitrogen 21 MG/DL Creatinine 1.40 MG/DL Random Glucose 405 MG/DL Total Protein 7.9 GM/DL Albumin 3.8 GM/DL Calcium Level 9.4 MG/DL Alkaline Phosphatase 68 U/L Aspartate Amino Transf (AST/SGOT) 13 U/L Alanine Aminotransferase (ALT/SGPT) 21 U/L Total Bilirubin 0.5 MG/DL Sodium Level 129 MEQ/L Potassium Level 5.5 MEQ/L Chloride Level 94 MEQ/L Carbon Dioxide Level 3.4 MEQ/L Anion Gap 32 MEQ/L Estimat Glomerular Filtration Rate 52 ML/MIN Phosphorus Level 6.3 MG/DL Magnesium Level 2.3 MG/DL Troponin I LESS THAN 0.02 NG/ML Lipase 65 U/L B-Hydroxybutyrate 15.24 MMOL/L MDM Medical Decision Making Medical Screen Exam Complete: Yes Emergency Medical Condition: Yes Interpretation(s) Afebrile, tachycardic, normotensive Leukocytosis 87% neutrophils Hyponatremia Hyperkalemia VBG: Metabolic acidosis with compensatory respiratory alkalosis Differential Diagnosis Diabetic ketoacidosis, dehydration, electrolyte abnormality, pancreatitis Narrative Course This is a 57-year-old male who presents to the emergency department with increasing nausea and vomiting over the past week. He was placed on a monitor and an IV was established. Labs confirm diabetic ketoacidosis. He was given IV hydration and started on an insulin drip and will be admitted to the intensive care unit for further monitoring. Critical Care Narrative Aggregate critical care time was 40 minutes. Time to perform other separately billable procedures was not included in the critical care time. My time did not include minutes spent treating any other patients simultaneously or on activities that did not directly contribute to the patient's treatment. The services I provided to this patient were to treat and/or prevent clinically significant deterioration that could result in: Disability, I provided critical care services requiring my management, as noted below: Chart data review, documentation time, medication orders and management, vital sign assessments/reviewing monitor data, ordering and reviewing lab tests, ordering and interpreting/reviewing x-rays and diagnostic studies, care of the patient and discussion of the patient with the admitting physicians. Physician Communication Physician Communication Discussed with Dr. Hardy Diagnosis Primary Impression: Diabetic ketoacidosis Qualified Codes: E10.11 - Type 1 diabetes mellitus with ketoacidosis with coma Admitting Information Admitting Physician Requests: Admit Petra Prakash MD Sep 21, 2017 17:47
[2017-09-21] MEDS ORDERED: SODIUM BICARBONATE 8.4% INJ 50 MEQ/50 ML SYR IV PUSH ONE (19:00)
[2017-09-21] MEDS ORDERED: CHLORHEXIDINE GLUCONATE 2 % 1 PACK (2 CLOTHS)(extra cloths) TOPICAL PRN (19:00)
--- NOTE | 2017-09-21 19:17 | HHI.HP ---
HPI Service Critical Care Medicine Primary Care Physician Arturo Begum MD Admission Diagnosis dka Diagnosis: Travel History International Travel<30 Days: No Contact w/Intl Traveler <30 Da: No Traveled to Known Affected Are: No History of Present Illness HPI This is a 57-year-old male that presented to the ED with nausea and vomiting that have been going on for 1 week, constant, moderate severity with some diffuse mild abdominal pain. He previously presented on 09/19 when he broke his back one week ago and noted an L1 fracture on 09/19 and and ever since then has had decreased appetite and oral intake. Beta hydroxybutyrate was 8.0, on his previous admission 2 days ago. Laboratory and imaging studies revealed an elevated anion gap. He has a history of diabetic ketoacidosis in the past. Patient also has alcohol use disorder noted to drink 9 beers a day. Critical care medicine was consulted. History PFSH Past Medical History Hx Anticoagulant Therapy: No Arthritis: Yes Asthma: No Autoimmune Disease: No Anxiety: No Depression: No Heart Rhythm Problems: No Cancer: No Cardiovascular Problems: Yes (DE and stents) High Cholesterol: Yes Chest Pain: Yes Congestive Heart Failure: No COPD: No Coronary Artery Disease: Yes (mi 09/1999) Diabetes: Yes Patient Takes Glucophage: Yes Diminished Hearing: No Endocrine: Yes GERD: Yes (today only) Genitourinary: No Hiatal Hernia: No Immune Disorder: No Implanted Vascular Access Dvce: Yes Kidney Stones: No Medical other: Yes (FX BACK 09/19/17) Musculoskeletal: Yes Neurologic: No Psychiatric: No Reproductive: No Respiratory: Yes Immunizations Current: No Myocardial Infarction: Yes (1999) Renal Failure: No Sleep Apnea: No Thyroid Disease: No Tetanus Vaccination: Unknown Past Surgical History Abdominal Surgery: No Body Medical Devices: cardiac stents x 3 Cardiac Surgery: Yes Coronary Stent: Yes (X3 STENTS) Ear Surgery: Yes (BILAT PERFORATED EAR DRUMS) Endocrine Surgery: No Eye Surgery: No Genitourinary Surgery: No Gynecologic Surgery: No Oral Surgery: No Thoracic Surgery: No Tonsillectomy: Yes Other Surgery: Yes Social History Alcohol Use: Yes ( BEER DAILY) Tobacco Use: No (QUIT 2014) Substance Use: No Allergies-Medications Allergies-Medications (Allergen,Severity, Reaction): Coded Allergies: No Known Allergies (Verified Adverse Reaction, Unknown, 09/21/17) Reported Meds & Prescriptions Reported Meds & Active Scripts Active Zantac (Ranitidine HCl) 150 Mg Tab 150 Mg PO BID Zofran Odt (Ondansetron Odt) 4 Mg Tab 4 Mg SL Q6HR PRN Percocet (Oxycodone-Acetaminophen) 10-325 mg Tab 1 Tab PO Q6H PRN Reported Novolog Inj (Insulin Aspart) 1,000 Unit/10 Ml Vial 0 SQ DIRECTED Sliding Scale as directed. Lantus Inj (Insulin Glargine) 1,000 Unit/10 Ml Vial 25 Units SQ HS Physical Exam Vital Signs Vital Signs Date Time Temp Pulse Resp B/P (MAP) Pulse Ox O2 Delivery O2 Flow Rate FiO2 09/21/17 18:02 09/21/17 17:49 97.8 108 24 117/55 (75) 100 Room Air 09/21/17 17:40 106 24 117/55 (75) 100 Room Air 09/21/17 17:15 100 21 09/21/17 16:18 106 118/69 (85) 99 Room Air 09/21/17 14:33 98.0 114 16 123/58 (79) 100 Physical Exam GENERAL: This is a well-developed well-nourished male appearing older than stated age, in no acute distress SKIN: Warm and dry. HEAD: Atraumatic. Normocephalic. EYES: Pupils equal and round. No scleral icterus. No injection or drainage. ENT: No nasal bleeding or discharge. Mucous membranes pink and moist. NECK: Trachea midline. No JVD. CARDIOVASCULAR: Normal rate, regular rhythm. RESPIRATORY: No accessory muscle use. Clear to auscultation. Breath sounds equal bilaterally. GASTROINTESTINAL: Abdomen soft, non-tender, nondistended. No guarding. MUSCULOSKELETAL: Extremities without clubbing, cyanosis, or edema. No obvious deformities. NEUROLOGICAL: GCS 15. awake and alert. RASS 0. No gross focal/sensory deficits. Follows commands in all 4 extremities. Laboratory Laboratory Tests Test 09/21/17 15:30 White Blood Count 16.5 Red Blood Count 4.33 Hemoglobin 14.6 Hematocrit 43.1 Mean Corpuscular Volume 99.5 Mean Corpuscular Hemoglobin 33.8 Mean Corpuscular Hemoglobin Concent 33.9 Red Cell Distribution Width 12.9 Platelet Count 255 Mean Platelet Volume 9.1 Neutrophils (%) (Auto) 87.0 Lymphocytes (%) (Auto) 4.3 Monocytes (%) (Auto) 7.5 Eosinophils (%) (Auto) 0.1 Basophils (%) (Auto) 1.1 Neutrophils # (Auto) 14.4 Lymphocytes # (Auto) 0.7 Monocytes # (Auto) 1.2 Eosinophils # (Auto) 0.0 Basophils # (Auto) 0.2 CBC Comment DIFF FINAL Differential Comment Blood Gas Puncture Site R.PERIPHERAL Blood Gas Patient Temperature 98.6 Venous Blood pH 6.92 Venous Blood Partial Pressure CO2 20 Venous Blood Partial Pressure O2 52 Venous Blood HCO3 4 Venous Blood Oxygen Saturation 73 Venous Blood Oxygen Content 14.6 Venous Blood Base Excess -26.1 Oxygen Delivery Device ROOM AIR Blood Gas Inspired Oxygen 21 Blood Urea Nitrogen 21 Creatinine 1.40 Random Glucose 405 Total Protein 7.9 Albumin 3.8 Calcium Level 9.4 Alkaline Phosphatase 68 Aspartate Amino Transf (AST/SGOT) 13 Alanine Aminotransferase (ALT/SGPT) 21 Total Bilirubin 0.5 Sodium Level 129 Potassium Level 5.5 Chloride Level 94 Carbon Dioxide Level 3.4 Anion Gap 32 Estimat Glomerular Filtration Rate 52 Phosphorus Level 6.3 Magnesium Level 2.3 Troponin I LESS THAN 0.02 Lipase 65 B-Hydroxybutyrate 15.24 Result Diagram: 09/21/17 1530 09/21/17 1530 Septic Shock Reassessment Septic shock perfusion: reassessment completed Caprini VTE Risk Assessment Caprini VTE Risk Assessment: Mod/High Risk (score >= 2) Caprini Risk Assessment Model Point Value = 1 Point Value = 2 Point Value = 3 Point Value = 5 Age 41-60 Minor surgery BMI > 25 kg/m2 Swollen legs Varicose veins or History of unexplained or recurrent spontaneous Oral contraceptives or hormone replacement Sepsis (< 1 month) Serious lung disease, including pneumonia (< 1 month) Abnormal pulmonary function Acute myocardial infarction Congestive heart failure (< 1 month) History of inflammatory bowel disease Medical patient at bed rest Age 61-74 Arthroscopic surgery Major open surgery (> 45 min) Laparoscopic surgery (> 45 min) Malignancy Confined to bed (> 72 hours) Immobilizing plaster cast Central venous access Age >= 75 History of VTE Family history of VTE Factor V Leiden Prothrombin [id number] Lupus anticoagulant Anticardiolipin antibodies Elevated serum homocysteine Heparin-induced thrombocytopenia Other congenital or acquired thrombophilia Stroke (< 1 month) Elective arthroplasty Hip, pelvis, or leg fracture Acute spinal cord injury (< 1 month) Prophylaxis Regimen Total Risk Factor Score Risk Level Prophylaxis Regimen 0-1 Low Early ambulation 2 Moderate Order ONE of the following: *Sequential Compression Device (SCD) *Heparin 5000 units SQ BID 3-4 Higher Order ONE of the following medications: *Heparin 5000 units SQ TID *Enoxaparin/Lovenox 40 mg SQ daily (WT < 150 kg, CrCl > 30 mL/min) *Enoxaparin/Lovenox 30 mg SQ daily (WT < 150 kg, CrCl > 10-29 mL/min) *Enoxaparin/Lovenox 30 mg SQ BID (WT < 150 kg, CrCl > 30 mL/min) AND/OR *Sequential Compression Device (SCD) 5 or more Highest Order ONE of the following medications: *Heparin 5000 units SQ TID (Preferred with Epidurals) *Enoxaparin/Lovenox 40 mg SQ daily (WT < 150 kg, CrCl > 30 mL/min) *Enoxaparin/Lovenox 30 mg SQ daily (WT < 150 kg, CrCl > 10-29 mL/min) *Enoxaparin/Lovenox 30 mg SQ BID (WT < 150 kg, CrCl > 30 mL/min) AND *Sequential Compression Device (SCD) Assessment and Plan Problem List: (1) Alcohol abuse ICD Code: F10.10 - Alcohol abuse, uncomplicated Status: Acute (2) Hypocalcemia ICD Code: E83.51 - Hypocalcemia Status: Acute (3) Hyponatremia ICD Code: E87.1 - Hypo-osmolality and hyponatremia Status: Acute (4) Hyperlipidemia ICD Code: E78.5 - Hyperlipidemia, unspecified Status: Acute (5) Hypertension ICD Code: I10 - Essential (primary) hypertension Status: Acute (6) Diabetic ketoacidosis ICD Code: E13.10 - Other specified diabetes mellitus with ketoacidosis without coma Status: Acute (7) Nausea & vomiting ICD Code: R11.2 - Nausea with vomiting, unspecified Status: Acute Assessment and Plan Plan by systems: Neurologic: EtOH abuse L1 fracture Neuro checks per ICU protocol Ativan 1 mg every 2 hours as needed for agitation or any Monitor for signs of alcohol withdrawal Seizure precautions Tylenol 650 mg every 6 hours as needed for pain and/or fever Patient to be maintained in TLSO brace Respiratory: Maintain O2 saturation greater than 92% Provide O2 1-4 L/min if required Bronchodilators every 4 hours as needed Cardiovascular: Hyperlipidemia Obtain lipid panel Renal: No Dupont required, if needed provide condom catheter -- Strict I/Os FEN/GI: Nausea and vomiting Dehydration Chronic hyponatremia Hyperkalemia Metabolic acidosis secondary to DKA Give 2 A sodium bicarbonate IV now, repeat bicarbonate level @2130 Initiate sodium bicarbonate drip 75 cc/an hour Maintain n.p.o. status until anion gap closes Patient may have ice chips Electrolyte replacement protocol Heme/ID: Leukocytosis Monitor for signs of infection Obtain blood cultures Obtain urine culture Monitor CBC Endocrine: DKA DKA protocol- Insulin infusion currently at 6 units/hour. Normal saline IV infusion at 200 cc/hour -- SSI Prophylaxis: GI Prophylaxis Famotidine IV DVT Prophylaxis -- SCDs Lines: Peripheral IVs 2 Dispo: my billing statement This patient remains critically ill with one or more organ systems which are or may become a threat to life. I have spent in excess of 47 minutes discontinuously in the care and management of this patient. This time is exclusive of procedures, and includes, but is not limited to, evaluation of the patient, review of the medical record, discussions with family, consultants, nursing staff, or respiratory therapy, and documentation in the medical record. Code Status Full Discussed Condition With ANCHOR TACKER at bedside Problem Qualifiers (1) Diabetic ketoacidosis: Qualified Codes: E10.11 - Type 1 diabetes mellitus with ketoacidosis with coma Trinity Hardy MD Sep 21, 2017 19:17
[2017-09-21] MEDS: FAMOTIDINE 20 MG/2 ML VIAL IV PUSH SCH (19:41)
[2017-09-21] MEDS: HEPARIN SODIUM - SQ 10,000 UNITS/ML VIAL SQ SCH (19:41)
[2017-09-21] MEDS: DOCUSATE SODIUM 50 MG/SENNA 8.6 MG TAB PO SCH (19:42)
[2017-09-21] MEDS: LORazepam 2 MG/ML VIAL IV PUSH PRN ×2 (19:59→21:47)
[2017-09-21] MEDS: SODIUM BICARBONATE 8.4% INJ 150 MEQ in DEXTROSE 5% IN WATE 1000ML INJ 850 ML IV SCH ×4 (20:00→21:51)
[2017-09-21] MEDS: SODIUM CHLORIDE 0.9% FLUSH 10 ML FLUSH IV FLUSH SCH (20:07)
[2017-09-21 21:26] LABS: BILIRUBIN, URINE NEG (NEG); BLOOD, URINE LARGE (NEG); GLUCOSE,URINE 500 mg/dL (NEG); KETONE, URINE 80 OR GREATER mg/dL (NEG); NITRITE,URINE NEG (NEG); PH, URINE 5.5 (5.0-8.5); URINE COLOR YELLOW (YELLW/STRAW); URINE LEUKOCYTE ESTERASE NEG (NEG)
[2017-09-21 21:41] LABS: SQUAMOUS EPITHELIAL CELL URINE 0-5 /hpf (0-5); WBC, URINE 0-2 /hpf (0-5)
[2017-09-21 22:24] LABS: BICARBONATE 9.7 MEQ/L (21.0-32.0); BLOOD UREA NITROGEN 22 MG/DL (7-18); CALCIUM 8.7 MG/DL (8.5-10.1); CHLORIDE 106 MEQ/L (98-107); GLOMERULAR FILTRATION RATE 77 ML/MIN (>89); GLUCOSE,RANDOM 130 MG/DL (74-106); MAGNESIUM 2.2 MG/DL (1.5-2.5); PHOSPHORUS 0.9 MG/DL (2.5-4.9); SODIUM (NA) 140 MEQ/L (136-145)
[2017-09-22] VITALS (49 sets, daily range): BP systolic 105–179; BP diastolic 51–135; PULSE 82–100; RESP 14–31; TEMP 97.8–99.2; O2SAT 98–100
[2017-09-22] MEDS: SODIUM CHLOR 0.9% 1000 ML INJ 1,000 ML IV SCH ×2 (02:10→05:32)
[2017-09-22] MEDS: CHLORHEXIDINE GLUCONATE 2 % 1 PACK (2 CLOTHS) TOP SCH (02:10)
[2017-09-22] MEDS: DEXT 5%-NACL 0.9% 1000 ML INJ 1,000 ML IV SCH (03:42)
[2017-09-22] MEDS ORDERED: CHLORHEXIDINE GLUCONATE 2 % 1 PACK (2 CLOTHS)(taper/protocol) TOPICAL SCH (04:00)
[2017-09-22 05:15] LABS: BICARBONATE 20.7 MEQ/L (21.0-32.0); CALCIUM 8.5 MG/DL (8.5-10.1); MAGNESIUM 1.9 MG/DL (1.5-2.5)
[2017-09-22 05:19] LABS: CREATININE 0.91 MG/DL (0.60-1.30); PHOSPHORUS 0.4 MG/DL (2.5-4.9)
[2017-09-22] MEDS: HEPARIN SODIUM - SQ 10,000 UNITS/ML VIAL SQ SCH ×2 (05:32→17:05)
[2017-09-22 08:42] LABS: CALCIUM 8.2 MG/DL (8.5-10.1)
[2017-09-22 08:43] LABS: BICARBONATE 23.3 MEQ/L (21.0-32.0); MAGNESIUM 1.8 MG/DL (1.5-2.5)
[2017-09-22] MEDS ORDERED: GLUCAGON 1 MG/ML VIAL OTHER PRN (08:45)
[2017-09-22] MEDS ORDERED: DC Insulin drip 2 hrs post basal insulin dose ONE (08:45)
[2017-09-22] MEDS ORDERED: DC previous DKA orders (HMC 1917) ONE (08:45)
[2017-09-22 08:46] LABS: CREATININE 0.77 MG/DL (0.60-1.30); PHOSPHORUS 0.4 MG/DL (2.5-4.9)
[2017-09-22] MEDS ORDERED: PNEUMOCOCCAL POLYVALENT INJ 25 MCG/0.5 ML SYR IM ONE (09:00)
[2017-09-22] MEDS: INSULIN DETEMIR 100 UNITS/ML VIAL SQ SCH ×2 (10:29→21:00)
[2017-09-22] MEDS: DOCUSATE SODIUM 50 MG/SENNA 8.6 MG TAB PO SCH ×2 (10:30→21:54)
[2017-09-22] MEDS: FAMOTIDINE 20 MG/2 ML VIAL IV PUSH SCH ×2 (10:30→21:54)
[2017-09-22] MEDS: SODIUM CHLORIDE 0.9% FLUSH 10 ML FLUSH IV FLUSH SCH ×2 (10:31→21:54)
[2017-09-22] MEDS: INSULIN ASPART SUPPLEMENTAL SCALE SQ SCH ×3 (12:00→21:00)
[2017-09-22 16:03] LABS: BICARBONATE 23.8 MEQ/L (21.0-32.0); CALCIUM 8.5 MG/DL (8.5-10.1); CREATININE 0.68 MG/DL (0.60-1.30); MAGNESIUM 1.9 MG/DL (1.5-2.5); PHOSPHORUS 0.8 MG/DL (2.5-4.9)
[2017-09-22] MEDS ORDERED: ICU - CALL ORDERING PHYSICIAN PRN (17:00)
[2017-09-22] MEDS ORDERED: POTASSIUM CHLORIDE 25 MEQ EFFERVESCENT TAB PO PRN (17:00)
[2017-09-22] MEDS ORDERED: ICU - MAGNESIUM SULFATE 2 GM/NS 100 ML IV PRN ×2 (17:00)
[2017-09-22] MEDS ORDERED: ICU - SODIUM PHOSPHATE 30 MMOL/NS 250 ML IV PRN ×2 (17:00)
[2017-09-22] MEDS ORDERED: ICU - POTASSIUM CHLORIDE/AQUEOUS SOLN 40 MEQ/100 ML IVPB IV PRN (17:00)
[2017-09-22] MEDS ORDERED: ICU - D/C ICU ELECTROLYTE ORDERS PRN (17:00)
[2017-09-22] MEDS ORDERED: ICU - MAGNESIUM SULFATE 4 GM/NS 100 ML IV PRN ×2 (17:00)
[2017-09-22] MEDS ORDERED: ICU - MAGNESIUM OXIDE 400 MG TAB PO PRN (17:00)
[2017-09-22] MEDS ORDERED: ICU - POTASSIUM PHOSPHATE 30 MMOL/NS 250 ML IV PRN ×2 (17:00)
[2017-09-22] MEDS ORDERED: ICU - POTASSIUM PHOSPHATE MONOBASIC 500 MG TAB PO PRN (17:00)
[2017-09-22] MEDS: ICU - POTASSIUM CHLORIDE/AQUEOUS SOLN 20 MEQ/100 ML IVPB IV PRN ×2 (17:20→17:21)
--- NOTE | 2017-09-22 18:26 | HHI.CCPN ---
Subjective Remarks/Hospital Course This is a 57-year-old male that presented to the ED with nausea and vomiting that have been going on for 1 week, constant, moderate severity with some diffuse mild abdominal pain. He previously presented on 09/19 when he broke his back one week ago and noted an L1 fracture on 09/19 and and ever since then has had decreased appetite and oral intake. Beta hydroxybutyrate was 8.0, on his previous admission. Laboratory and imaging studies revealed an elevated anion gap. He has a history of diabetic ketoacidosis in the past. Patient also has alcohol use disorder noted to drink 9 beers a day. Critical care medicine was consulted. Subjective: 09/22: Anion gap closed. Patient tolerating diet. Patient has been transitioned to Levemir twice daily. Patient also has an extensive EtOH history and received 2 mg of Ativan and individual dosing during the night. Patient remained confused and required restraints during the night. Patient appears more oriented at this time. Patient denies pain. Patient to wear TLSO brace when out of bed. Potassium level noted to be 2.8 currently being replaced. Objective Vital Signs Date Time Temp Pulse Resp B/P (MAP) Pulse Ox O2 Delivery O2 Flow Rate FiO2 09/22/17 18:00 94 09/22/17 18:00 18 132/76 (94) 100 09/22/17 04:00 97.8 09/21/17 20:35 21 09/21/17 17:49 Room Air Intake and Output 09/22/17 09/22/17 09/23/17 08:00 16:00 00:00 Intake Total 2173 ml 360 ml Output Total 1200 ml Balance 973 ml 360 ml Result Diagram: 09/21/17 1530 09/22/17 1522 Other Results Laboratory Tests Test 09/21/17 21:20 Blood Gas Puncture Site RT RADIAL Blood Gas Patient Temperature 98.6 Blood Gas HCO3 6 mmol/L (22-26) Blood Gas Base Excess -19.7 mmol/L (-2-2) Blood Gas Oxygen Saturation 97 % (90-100) Arterial Blood pH 7.27 (7.380-7.420) Arterial Blood Partial Pressure CO2 14 mmHG (38-42) Arterial Blood Partial Pressure O2 129 mmHG (61-120) Arterial Blood Oxygen Content 17.5 Vol % (12.0-20.0) Arterial Blood Carboxyhemoglobin 1.3 % (0-4) Arterial Blood Methemoglobin 1.6 % (0-2) Blood Gas Hemoglobin 12.8 G/DL (12.0-16.0) Oxygen Delivery Device ROOM AIR Blood Gas Inspired Oxygen 21 % Objective Remarks GENERAL: This is a well-developed well-nourished male appearing older than stated age, in no acute distress SKIN: Warm and dry. HEAD: Atraumatic. Normocephalic. EYES: Pupils equal and round. No scleral icterus. No injection or drainage. ENT: No nasal bleeding or discharge. Mucous membranes pink and moist. NECK: Trachea midline. No JVD. CARDIOVASCULAR: Normal rate, regular rhythm. RESPIRATORY: No accessory muscle use. Clear to auscultation. Breath sounds equal bilaterally. GASTROINTESTINAL: Abdomen soft, non-tender, nondistended. No guarding. MUSCULOSKELETAL: Extremities without clubbing, cyanosis, or edema. No obvious deformities. NEUROLOGICAL: GCS 15. awake and alert. RASS 0. No gross focal/sensory deficits. Follows commands in all 4 extremities. A/P Problem List: (1) Alcohol abuse ICD Code: F10.10 - Alcohol abuse, uncomplicated Status: Acute (2) Hypocalcemia ICD Code: E83.51 - Hypocalcemia Status: Acute (3) Hyponatremia ICD Code: E87.1 - Hypo-osmolality and hyponatremia Status: Acute (4) Hyperlipidemia ICD Code: E78.5 - Hyperlipidemia, unspecified Status: Acute (5) Hypertension ICD Code: I10 - Essential (primary) hypertension Status: Acute (6) Diabetic ketoacidosis ICD Code: E13.10 - Other specified diabetes mellitus with ketoacidosis without coma Status: Acute (7) Nausea & vomiting ICD Code: R11.2 - Nausea with vomiting, unspecified Status: Acute Assessment and Plan Plan by systems: Neurologic: EtOH abuse L1 fracture Neuro checks per ICU protocol Ativan 1 mg every 2 hours as needed for agitation or anxiety Monitor for signs of alcohol withdrawal Seizure precautions Tylenol 650 mg every 6 hours as needed for pain and/or fever Patient to be maintained in TLSO brace when out of bed Respiratory: Maintain O2 saturation greater than 92% Provide O2 1-4 L/min if required Bronchodilators every 4 hours as needed Cardiovascular: Hyperlipidemia Obtain lipid panel Renal: No Dupont required, if needed provide condom catheter -- Strict I/Os FEN/GI: Nausea and vomiting-resolved Dehydration-resolved Chronic hyponatremia Hypokalemia Metabolic acidosis secondary to DKA-resolved 1800-calorie diabetic diet Electrolyte replacement protocol Heme/ID: Leukocytosis Monitor for signs of infection Obtain blood cultures Obtain urine culture Monitor CBC Endocrine: DKA-resolved Transition from DKA, Levemir twice daily -- SSI Prophylaxis: GI Prophylaxis Famotidine IV DVT Prophylaxis -- SCDs Lines: Peripheral IVs 2 Dispo: Level 2 follow up. Plan transferred to [facility] in a.m.. Plan transfer to [facility] floor when bed becomes available Physician Trinity Hardy Problem Qualifiers (1) Diabetic ketoacidosis: Qualified Codes: E10.11 - Type 1 diabetes mellitus with ketoacidosis with coma Trinity Hardy MD Sep 22, 2017 18:26
[2017-09-22] MEDS ORDERED: POTASSIUM CHLORIDE 25 MEQ EFFERVESCENT TAB PO ONE (19:00)
--- NOTE | 2017-09-22 21:14 | EKG ---
Date Performed: 09/21/2017 Time Performed: 16:55:24 PTAGE: 57 years EKG: SINUS TACHYCARDIA MODERATE INTRAVENTRICULAR CONDUCTION DELAY ST DEVIATION AND MODERATE T-WA VE ABNORMALITY ABNORMAL ECG PREVIOUS TRACING : 07/19/2015 10.16 Since the previous tracing, no significant change noted DOCTOR: Mima Perez Interpretating Date/Time 09/22/2017 21:13:19
[2017-09-22 21:26] LABS: CHOLESTEROL/ HDL RATIO 2.56 RATIO; HDL CHOLESTEROL 57.6 MG/DL (40.0-60.0)
[2017-09-22] MEDS: DEXTROSE 50% IN WATER 50 ML VIAL(D50) IV PUSH PRN (22:10)
[2017-09-23] VITALS (25 sets, daily range): BP systolic 117–174; BP diastolic 66–97; PULSE 80–100; RESP 11–22; TEMP 97.8–98.7; O2SAT 97–100
[2017-09-23] MEDS: CHLORHEXIDINE GLUCONATE 2 % 1 PACK (2 CLOTHS) TOP SCH (04:00)
[2017-09-23] MEDS: HEPARIN SODIUM - SQ 10,000 UNITS/ML VIAL SQ SCH ×2 (04:48→18:13)
[2017-09-23 04:50] LABS: AUTOMATED NEUTROPHIL # 5.2 TH/MM3 (1.8-7.7); BASOPHIL # 0.1 TH/MM3 (0-0.2); BASOPHIL % 0.9 % (0.0-2.0); EOSINOPHIL # 0.1 TH/MM3 (0-0.4); EOSINOPHIL % 1.2 % (0.0-4.0); HEMATOCRIT 42.2 % (39.0-51.0); HEMOGLOBIN 14.6 GM/DL (13.0-17.0); LYMPH % 21.5 % (9.0-44.0); LYMPHOCYTE # 1.7 TH/MM3 (1.0-4.8); MEAN CELL VOLUME 97.2 FL (80.0-100.0); MEAN CORPUSCULAR HEMOGLOBIN 33.6 PG (27.0-34.0); MEAN CORPUSCULAR HGB CONC 34.5 % (32.0-36.0); MEAN PLATELET VOLUME 8.9 FL (7.0-11.0); MONO % 9.5 % (0.0-8.0); MONOCYTE # 0.7 TH/MM3 (0-0.9); NEUT % 66.9 % (16.0-70.0); PLATELET COUNT 204 TH/MM3 (150-450); RED BLOOD COUNT 4.34 MIL/MM3 (4.50-5.90); RED CELL DISTRIBUTION WIDTH 12.1 % (11.6-17.2); WHITE BLOOD COUNT 7.8 TH/MM3 (4.0-11.0)
[2017-09-23 05:36] LABS: BICARBONATE 28.6 MEQ/L (21.0-32.0); CALCIUM 8.3 MG/DL (8.5-10.1); CREATININE 0.42 MG/DL (0.60-1.30)
[2017-09-23] MEDS ORDERED: POTASSIUM CHLORIDE 25 MEQ EFFERVESCENT TAB PO ONE (08:00)
[2017-09-23] MEDS: INSULIN ASPART SUPPLEMENTAL SCALE SQ SCH ×4 (08:16→20:58)
[2017-09-23] MEDS: DOCUSATE SODIUM 50 MG/SENNA 8.6 MG TAB PO SCH ×2 (08:16→20:44)
[2017-09-23] MEDS: FAMOTIDINE 20 MG/2 ML VIAL IV PUSH SCH ×2 (08:16→20:44)
[2017-09-23] MEDS: INSULIN DETEMIR 100 UNITS/ML VIAL SQ SCH ×2 (08:16→20:57)
[2017-09-23] MEDS: SODIUM CHLORIDE 0.9% FLUSH 10 ML FLUSH IV FLUSH SCH ×2 (08:17→20:43)
[2017-09-24] VITALS (10 sets, daily range): BP systolic 99–145; BP diastolic 67–81; PULSE 84–98; RESP 11–18; TEMP 97.5–98.5; O2SAT 96–98
[2017-09-24] MEDS: CHLORHEXIDINE GLUCONATE 2 % 1 PACK (2 CLOTHS) TOP SCH (04:00)
[2017-09-24] MEDS: DEXTROSE 50% IN WATER 50 ML VIAL(D50) IV PUSH PRN (04:24)
[2017-09-24] MEDS: HEPARIN SODIUM - SQ 10,000 UNITS/ML VIAL SQ SCH (06:01)
[2017-09-24] MEDS: INSULIN DETEMIR 100 UNITS/ML VIAL SQ SCH (07:26)
[2017-09-24] MEDS: INSULIN ASPART SUPPLEMENTAL SCALE SQ SCH ×2 (08:47→12:10)
[2017-09-24] MEDS: DOCUSATE SODIUM 50 MG/SENNA 8.6 MG TAB PO SCH (08:49)
[2017-09-24] MEDS: SODIUM CHLORIDE 0.9% FLUSH 10 ML FLUSH IV FLUSH SCH (08:49)
[2017-09-24] MEDS: FAMOTIDINE 20 MG/2 ML VIAL IV PUSH SCH (08:49)
--- NOTE | 2017-09-24 09:36 | HHI.PR ---
Subjective Remarks Patient seen and evaluated today in follow-up for DKA. Nausea and vomiting resolved. Blood sugars improved and somewhat hypoglycemic last night. Oral intake is greatly improved. Patient would like to try to go home later Objective Vitals Vital Signs Date Time Temp Pulse Resp B/P (MAP) Pulse Ox O2 Delivery O2 Flow Rate FiO2 09/24/17 09:00 94 18 129/73 (91) 98 09/24/17 09:00 94 09/24/17 08:53 97.5 98 13 119/72 (88) 97 09/24/17 08:00 98 09/24/17 06:00 84 09/24/17 04:00 88 09/24/17 04:00 88 12 99/67 (78) 96 09/24/17 02:00 91 09/24/17 00:00 90 09/24/17 00:00 98.5 91 11 137/70 (92) 97 09/23/17 22:00 96 09/23/17 20:00 93 09/23/17 20:00 98.3 94 12 131/72 (91) 100 09/23/17 19:38 94 20 131/72 (91) 09/23/17 19:00 94 14 142/72 (95) 09/23/17 18:00 98 09/23/17 18:00 98 13 117/79 (92) 09/23/17 17:00 92 18 165/97 (119) 98 09/23/17 17:00 92 09/23/17 17:00 92 09/23/17 16:00 98.6 92 15 168/96 (120) 98 09/23/17 16:00 92 09/23/17 15:00 94 14 165/90 (115) 98 09/23/17 14:00 94 15 162/88 (112) 98 09/23/17 14:00 94 09/23/17 13:00 94 15 158/83 (108) 99 09/23/17 13:00 94 09/23/17 12:00 100 09/23/17 12:00 98.7 100 18 129/82 (98) 98 09/23/17 11:00 96 09/23/17 11:00 96 13 166/83 (110) 99 09/23/17 10:32 96 19 160/86 (110) 97 09/23/17 10:28 96 14 174/92 (119) 100 09/23/17 10:00 96 15 157/82 (107) 98 09/23/17 10:00 96 I/O 09/23/17 09/23/17 09/23/17 09/24/17 09/24/17 09/24/17 06:59 14:59 22:59 06:59 14:59 22:59 Intake Total 120 ml 360 ml Output Total 850 ml 775 ml 800 ml Balance -730 ml -775 ml -440 ml Intake Oral 120 ml 360 ml Output Urine Total 850 ml 775 ml 800 ml # Bowel Movements 0 1 Result Diagram: 09/23/17 0400 09/23/17 0635 Objective Remarks GENERAL: This is a well-nourished, well-developed patient, in no apparent distress. CARDIOVASCULAR: Regular rate and rhythm without murmurs, gallops, or rubs. RESPIRATORY: Clear to auscultation. Breath sounds equal bilaterally. No wheezes , rales, or rhonchi. GASTROINTESTINAL: Abdomen soft, non-tender, nondistended. Normal active bowel sounds MUSCULOSKELETAL: Extremities without clubbing, cyanosis, or edema. NEURO: Alert & Oriented x4 to person, place, time, situation. Moves all ext x4 A/P Problem List: (1) Vertebral fracture Plan: Continue with pain medication Outpatient follow-up per 09/17 ER visit (2) Nausea & vomiting ICD Code: R11.2 - Nausea with vomiting, unspecified Status: Acute Plan: Resolved (3) Diabetic ketoacidosis ICD Code: E13.10 - Other specified diabetes mellitus with ketoacidosis without coma Status: Acute Plan: Resolved Continue insulin subcutaneously Follow oral intake Problem Qualifiers (1) Diabetic ketoacidosis: Qualified Codes: E10.11 - Type 1 diabetes mellitus with ketoacidosis with coma Lena Stearns MD Sep 24, 2017 09:36
--- NOTE | 2017-09-24 09:37 | HHI.DCPOC ---
Discharge Care Plan Diagnosis: (1) Vertebral fracture (2) Nausea & vomiting (3) Diabetic ketoacidosis Goals to Promote Your Health * To prevent worsening of your condition and complications * To maintain your health at the optimal level Directions to Meet Your Goals Take your medications as prescribed Follow your dietary instruction Follow activity as directed Keep your appointments as scheduled Take your immunizations and boosters as scheduled If your symptoms worsen call your PCP, if no PCP go to Urgent Care Center or Emergency Room Smoking is Dangerous to Your Health. Avoid second hand smoke Call the 24-hour hour crisis hotline for domestic abuse at Lena Stearns MD Sep 24, 2017 09:36
--- NOTE | 2017-09-24 09:39 | HHI.DS ---
Discharge Summary Admission Date Sep 21, 2017 at 16:45 Discharge Date: Sep 24, 2017 Admitting Diagnosis dka (1) Vertebral fracture (2) Nausea & vomiting ICD Code: R11.2 - Nausea with vomiting, unspecified Status: Acute (3) Diabetic ketoacidosis ICD Code: E13.10 - Other specified diabetes mellitus with ketoacidosis without coma Status: Acute Procedures None Brief History - From Admission HPI This is a 57-year-old male that presented to the ED with nausea and vomiting that have been going on for 1 week, constant, moderate severity with some diffuse mild abdominal pain. He previously presented on 09/19 when he broke his back one week ago and noted an L1 fracture on 09/19 and and ever since then has had decreased appetite and oral intake. Beta hydroxybutyrate was 8.0, on his previous admission 2 days ago. Laboratory and imaging studies revealed an elevated anion gap. He has a history of diabetic ketoacidosis in the past. Patient also has alcohol use disorder noted to drink 9 beers a day. Critical care medicine was consulted. History PFSH Past Medical History Hx Anticoagulant Therapy: No Arthritis: Yes Asthma: No Autoimmune Disease: No Anxiety: No Depression: No Heart Rhythm Problems: No Cancer: No Cardiovascular Problems: Yes (DC and stents) High Cholesterol: Yes Chest Pain: Yes Congestive Heart Failure: No COPD: No Coronary Artery Disease: Yes (mi 09/1999) Diabetes: Yes Patient Takes Glucophage: Yes Diminished Hearing: No Endocrine: Yes GERD: Yes (today only) Genitourinary: No Hiatal Hernia: No Immune Disorder: No Implanted Vascular Access Dvce: Yes Kidney Stones: No Medical other: Yes (FX BACK 09/19/17) Musculoskeletal: Yes Neurologic: No Psychiatric: No Reproductive: No Respiratory: Yes Immunizations Current: No Myocardial Infarction: Yes (1999) Renal Failure: No Sleep Apnea: No Thyroid Disease: No Tetanus Vaccination: Unknown Past Surgical History Abdominal Surgery: No Body Medical Devices: cardiac stents x 3 Cardiac Surgery: Yes Coronary Stent: Yes (X3 STENTS) Ear Surgery: Yes (BILAT PERFORATED EAR DRUMS) Endocrine Surgery: No Eye Surgery: No Genitourinary Surgery: No Gynecologic Surgery: No Oral Surgery: No Thoracic Surgery: No Tonsillectomy: Yes Other Surgery: Yes Social History Alcohol Use: Yes ( BEER DAILY) Tobacco Use: No (QUIT 2014) Substance Use: No Allergies-Medications Allergies-Medications (Allergen,Severity, Reaction): Coded Allergies: No Known Allergies (Verified Adverse Reaction, Unknown, 09/21/17) Reported Meds & Prescriptions Reported Meds & Active Scripts Active Zantac (Ranitidine HCl) 150 Mg Tab 150 Mg PO BID Zofran Odt (Ondansetron Odt) 4 Mg Tab 4 Mg SL Q6HR PRN Percocet (Oxycodone-Acetaminophen) 10-325 mg Tab 1 Tab PO Q6H PRN Reported Novolog Inj (Insulin Aspart) 1,000 Unit/10 Ml Vial 0 SQ DIRECTED Sliding Scale as directed. Lantus Inj (Insulin Glargine) 1,000 Unit/10 Ml Vial 25 Units SQ HS CBC/BMP: 09/23/17 0400 09/23/17 0635 Significant Findings Laboratory Tests Test 09/21/17 15:30 09/21/17 19:50 09/21/17 21:16 09/21/17 21:20 White Blood Count 16.5 TH/MM3 (4.0-11.0) Red Blood Count 4.33 MIL/MM3 (4.50-5.90) Neutrophils (%) (Auto) 87.0 % (16.0-70.0) Lymphocytes (%) (Auto) 4.3 % (9.0-44.0) Neutrophils # (Auto) 14.4 TH/MM3 (1.8-7.7) Lymphocytes # (Auto) 0.7 TH/MM3 (1.0-4.8) Monocytes # (Auto) 1.2 TH/MM3 (0-0.9) Venous Blood pH 6.92 (7.360-7.400) Venous Blood Partial Pressure CO2 20 mmHg (44-48) Venous Blood Partial Pressure O2 52 mmHg (35-40) Venous Blood HCO3 4 mmol/L (22-26) Venous Blood Base Excess -26.1 mmol/L (-2-2) Blood Urea Nitrogen 21 MG/DL (7-18) Creatinine 1.40 MG/DL (0.60-1.30) Random Glucose 405 MG/DL (74-106) Aspartate Amino Transf (AST/SGOT) 13 U/L (15-37) Sodium Level 129 MEQ/L (136-145) Potassium Level 5.5 MEQ/L (3.5-5.1) Chloride Level 94 MEQ/L (98-107) Carbon Dioxide Level 3.4 MEQ/L (21.0-32.0) Anion Gap 32 MEQ/L (5-15) Estimat Glomerular Filtration Rate 52 ML/MIN (>89) Phosphorus Level 6.3 MG/DL (2.5-4.9) Troponin I LESS THAN 0.02 NG/ML Lipase 65 U/L (73-393) B-Hydroxybutyrate 15.24 MMOL/L (0.00-0.39) Urine Protein 30 mg/dL (NEG-TRACE) Urine Glucose (UA) 500 mg/dL (NEG) Urine Ketones 80 OR GREATER mg/dL (NEG) Urine Occult Blood LARGE (NEG) Urine RBC 4-9 /hpf (0-3) Blood Gas HCO3 6 mmol/L (22-26) Blood Gas Base Excess -19.7 mmol/L (-2-2) Arterial Blood pH 7.27 (7.380-7.420) Arterial Blood Partial Pressure CO2 14 mmHG (38-42) Arterial Blood Partial Pressure O2 129 mmHG (61-120) Test 09/21/17 21:40 09/22/17 04:33 09/22/17 08:15 09/22/17 15:22 Blood Urea Nitrogen 22 MG/DL (7-18) Random Glucose 130 MG/DL (74-106) 172 MG/DL (74-106) 149 MG/DL (74-106) 146 MG/DL (74-106) Phosphorus Level 0.9 MG/DL (2.5-4.9) 0.4 MG/DL (2.5-4.9) 0.4 MG/DL (2.5-4.9) 0.8 MG/DL (2.5-4.9) Carbon Dioxide Level 9.7 MEQ/L (21.0-32.0) 20.7 MEQ/L (21.0-32.0) Anion Gap 24 MEQ/L (5-15) Estimat Glomerular Filtration Rate 77 ML/MIN (>89) 86 ML/MIN (>89) Hemoglobin A1c 10.0 % (4.3-6.0) Potassium Level 3.1 MEQ/L (3.5-5.1) 3.0 MEQ/L (3.5-5.1) 2.8 MEQ/L (3.5-5.1) Chloride Level 108 MEQ/L (98-107) 108 MEQ/L (98-107) Lactic Acid Level 2.1 mmol/L (0.4-2.0) B-Hydroxybutyrate 2.37 MMOL/L (0.00-0.39) 0.40 MMOL/L (0.00-0.39) Calcium Level 8.2 MG/DL (8.5-10.1) Test 09/23/17 02:04 09/23/17 04:00 09/23/17 06:35 Red Blood Count 4.34 MIL/MM3 (4.50-5.90) Monocytes (%) (Auto) 9.5 % (0.0-8.0) Blood Urea Nitrogen 5 MG/DL (7-18) Creatinine 0.42 MG/DL (0.60-1.30) Calcium Level 8.3 MG/DL (8.5-10.1) Potassium Level 2.8 MEQ/L (3.5-5.1) 2.7 MEQ/L (3.5-5.1) PE at Discharge GENERAL: This is a well-nourished, well-developed patient, in no apparent distress. CARDIOVASCULAR: Regular rate and rhythm without murmurs, gallops, or rubs. RESPIRATORY: Clear to auscultation. Breath sounds equal bilaterally. No wheezes , rales, or rhonchi. GASTROINTESTINAL: Abdomen soft, non-tender, nondistended. Normal active bowel sounds MUSCULOSKELETAL: Extremities without clubbing, cyanosis, or edema. NEURO: Alert & Oriented x4 to person, place, time, situation. Moves all ext x4 Pt update on day of discharge Please see daily progress note Hospital Course Patient is a 57-year-old gentleman who has been managing his own diabetes without difficulty. He had some nausea and vomiting fracture and pain response. He then became dehydrated and came in with DKA. No infectious source was found. Patient did well with IV fluids. He was initially admitted to the critical care team and then transferred to the medical team. He did well on insulin, IV fluids and antiemetics. He was discharged home after resolution of his acidosis Pt Condition on Discharge: Good Discharge Disposition: Discharge Home Discharge Time: <= 30 minutes Discharge Instructions DIET: Follow Instructions for: Diabetic Diet Activities you can perform: Regular-No Restrictions Follow up Referrals: PCP Follow-up Continued Medications: Insulin Aspart Inj (Novolog Inj) 1,000 Unit/10 Ml Vial 0 SQ DIRECTED for Blood Sugar Management, #10 ML 0 Refills Sliding Scale as directed. Insulin Glargine Inj (Lantus Inj) 1,000 Unit/10 Ml Vial 25 UNITS SQ HS for Blood Sugar Management, VIAL 0 Refills Ondansetron Odt (Zofran Odt) 4 Mg Tab 4 MG SL Q6HR PRN for Nausea/Vomiting, #20 TAB 0 Refills Oxycodone-Acetaminophen (Percocet) 10-325 mg Tab 1 TAB PO Q6H PRN for PAIN, #12 TAB 0 Refills Ranitidine (Zantac) 150 Mg Tab 150 MG PO BID for Reduce Stomach Acid, #15 TAB 0 Refills Lena Stearns MD Sep 24, 2017 09:39
== END 2017-09-24 13:24 | disposition home or self-care (01) | DRG 638 ==
LOC: PHED 14:26 → PHEDA 16:45 → PHICU 18:08
PROVIDERS: ADMIT Hospitalist; ATTEND Hospitalist
DX: E10.10 Type 1 diabetes mellitus with ketoacidosis without coma (principal); E87.1 Hypo-osmolality and hyponatremia; E10.649 Type 1 diabetes mellitus with hypoglycemia without coma; E83.51 Hypocalcemia; I10 Essential (primary) hypertension; E78.5 Hyperlipidemia, unspecified; E87.5 Hyperkalemia; E86.0 Dehydration; D72.829 Elevated white blood cell count, unspecified; F10.10 Alcohol abuse, uncomplicated; Y90.9 Presence of alcohol in blood, level not specified; M19.90 Unspecified osteoarthritis, unspecified site; E78.00 Pure hypercholesterolemia, unspecified; I25.10 Atherosclerotic heart disease of native coronary artery without angina pectoris; E87.6 Hypokalemia; S32.019D Unspecified fracture of first lumbar vertebra, subsequent encounter for fracture with routine healing; I25.2 Old myocardial infarction; Z79.4 Long term (current) use of insulin; Z95.5 Presence of coronary angioplasty implant and graft; Z87.891 Personal history of nicotine dependence; Z78.1 Physical restraint status; W19.XXXD Unspecified fall, subsequent encounter
CPT/HCPCS: 36600; 80048; 80053; 80061; 81001; 82010; 82805; 82948; 83036; 83605; 83690; 83735; 84100; 84132; 84484; 85025; 87040; 87086; 87641; 93005; 99291; J1644; J1815; J1817; J2060; J3480; J7030; J7042; J7070